=== PATIENT | male | born 1980 | race African-American/Black ===

== ENCOUNTER 2019-07-16 17:11 | Emergency (ER) | payer SELFPAY ==
[~2019-07-16] VITALS: Ht 177.8 cm; Wt 77.3 kg
[2019-07-16 19:20] VITALS: BP 126/80; PULSE 73; TEMP 97.8
== END 2019-07-16 19:16 | disposition home or self-care (01) ==
LOC: COL.ER 17:11
DX: S61.412A Laceration without foreign body of left hand, initial encounter (principal); W26.8XXA Contact with other sharp object(s), not elsewhere classified, initial encounter; Z23 Encounter for immunization; F17.210 Nicotine dependence, cigarettes, uncomplicated; W01.0XXA Fall on same level from slipping, tripping and stumbling without subsequent striking against object, initial encounter; Y92.009 Unspecified place in unspecified non-institutional (private) residence as the place of occurrence of the external cause

== ENCOUNTER → 2019-07-26 | Outpatient (CLI) | payer SELFPAY ==
[2019-07-26 14:57] VITALS: BP 133/87; PULSE 65; TEMP 98.3
== END ==
LOC: COL.ER 14:42
DX: Z48.02 Encounter for removal of sutures (principal)

== ENCOUNTER 2020-01-02 16:46 | Emergency (ER) | payer MEDICAID ==
[~2020-01-02] VITALS: Ht 177.8 cm; Wt 79.5 kg
[2020-01-02 17:05] VITALS: TEMP 97
[2020-01-02] MEDS ORDERED: ZOFRAN 4MG T4 MG/TAB PO (17:47)
[2020-01-02 17:59] LABS: COLLECTION METHOD CLEAN CATCH
[2020-01-02 18:03] LABS: CALCIUM 11.3 mg/dL (8.4-10.2); CREATININE, serum 2.11 (0.66-1.25); POTASSIUM 4.3 mmol/L (3.4-5.0)
[2020-01-02 18:14] LABS: HYALINE CAST >12 /lpf; MUCOUS Present /lpf; PH 5 (5-8); SQUAMOUS EPITHELIAL 0-2 /hpf; URINE APPEARANCE Cloudy; URINE BACTERIA Occasional /hpf; URINE BILIRUBIN Negative (NEGATIVE); URINE BLOOD 1+ (NEGATIVE); URINE COLOR Amber; URINE GLUCOSE Negative (NEGATIVE); URINE KETONE 1+ (NEGATIVE); URINE LEUKOCYTE ESTERASE Negative (NEGATIVE); URINE NITRATE Negative (NEGATIVE); URINE PROTEIN(semi-quant) 2+ (NEGATIVE); URINE RBC 0-2 /hpf
[2020-01-02 19:21] VITALS: BP 128/79; PULSE 83
== END 2020-01-02 19:30 | disposition home or self-care (01) ==
LOC: COL.ER 16:46
PROVIDERS: Emergency Medicine
DX: N17.9 Acute kidney failure, unspecified (principal); T67.9XXA Effect of heat and light, unspecified, initial encounter; E86.0 Dehydration
CPT/HCPCS: J2405; J2550; J7030

== ENCOUNTER 2021-05-02 22:24 | Emergency (ER) | payer MEDICAID ==
[~2021-05-02] VITALS: Ht 177.8 cm; Wt 79.5 kg
[~2021-05-02 22:24] MED LIST: ZOFRAN 4MG T4 MG/TAB PO
[2021-05-02 23:38] LABS: COLLECTION METHOD CLEAN CATCH
[2021-05-02 23:44] LABS: MUCOUS Present /lpf; PH 5 (5-8); SQUAMOUS EPITHELIAL None Seen /hpf; URINE APPEARANCE Clear; URINE BACTERIA None Seen /hpf; URINE BILIRUBIN Negative (NEGATIVE); URINE BLOOD Negative (NEGATIVE); URINE COLOR Yellow; URINE GLUCOSE Negative (NEGATIVE); URINE KETONE Negative (NEGATIVE); URINE LEUKOCYTE ESTERASE Negative (NEGATIVE); URINE NITRATE Negative (NEGATIVE); URINE PROTEIN(semi-quant) Negative (NEGATIVE); URINE RBC 0-2 /hpf; URINE UROBILINOGEN Negative (NEGATIVE)
[2021-05-03 00:19] VITALS: BP 158/83; PULSE 91; TEMP 98.8
== END 2021-05-03 00:19 | disposition home or self-care (01) ==
LOC: COL.ER 22:24
PROVIDERS: Emergency Medicine
DX: N43.3 Hydrocele, unspecified (principal); F17.210 Nicotine dependence, cigarettes, uncomplicated

== ENCOUNTER 2021-07-02 16:42 | Emergency (ER) | payer MEDICAID ==
[~2021-07-02] VITALS: Ht 177.8 cm; Wt 84.1 kg
[2021-07-02 16:50] VITALS: TEMP 98.2
[2021-07-02] MEDS ORDERED: CEPHALEXIN500 M1 PO (18:48)
[2021-07-02 19:28] VITALS: BP 114/78; PULSE 76
== END 2021-07-02 19:28 | disposition home or self-care (01) ==
LOC: COL.ER 16:42
DX: S61.442A Puncture wound with foreign body of left hand, initial encounter (principal); W34.010A Accidental discharge of airgun, initial encounter